=== PATIENT | female | born 1970 | race Caucasian/White ===

== ENCOUNTER 2018-06-16 09:50 | Emergency (ER) | payer BC ==
--- OUTSIDE RECORDS SUMMARY | 2018-06-16 09:59 | XMS REPORT | Continuity of Care Document ---
:1970 External Reference #:[id number] Author Name Ivanna Mendoza Care Team Providers Name Role Phone Carmelo Dumas MD Care Team Information Tax Accounting Assistant Unavailable Payers Date Identification Numbers Payment Provider Subscriber Policy Number: [id number] [facility] [employer] Number: [id number] [address] [id number] PayID: [id number] DANY [address]ve [id number] Advance Directives Description No Information Available Problems Description No Information Family History Date Family Member(s) Observation Comments Father due to CHF () Mother Hypothyroidism Mother Hypertension Siblings 2 1 brother- hip replacement 1 sister, stage 2 cervical cancer Social History Type Date Description Comments Sex Unknown 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 Recreational Drug Use Denies Drug Use Smoking Status Reviewed: 06/14/18 Patient is a former social smoking to smoker age [age]. Exercise Type/Frequency Exercises regularly walking daily 1-2 miles daily and yoga Allergies, Adverse Reactions, Alerts Description No Known Drug Allergies Medications Active Medications SIG Qnty Indications Ordering Provider Date Cabergoline take 0.25mg (/2 14tabs Carmelo Dumas MD 0.5mg tablet) by mouth Tablets twice weekly Leola [facility] 1 tab by mouth Unknown 180mg every day as Tablets needed Immunizations Description No Information Available Vital Signs Date Vital Result Comment 2018 9:35am Height 63 inches 5'3" Weight 174.00 lb w/ shoes Heart Rate 67 /min BP Systolic Sitting 121 mmHg BP Diastolic Sitting 77 mmHg BMI (Body Mass Index) 30.8 kg/m2 Results Description No Information Available Procedures Description No Information Available Encounters Type Date Location Provider Dx Diagnosis Office Visit 2018 [facility] [facility] and Carmelo Dumas MD 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
[2018-06-16 10:04] VITALS: BP 117/81
--- NOTE | 2018-06-16 10:23 | UC ---
Throat Pain/Nasal Alber HPI - HPI Summary HPI Summary: Cough, sore throat, congestion. NO fever. She feels malaise. NO lung disease. - History of Current Complaint Chief Complaint: UCGeneralIllness Stated Complaint: COUGH, SINUS PRESSURE Time Seen by Provider: 06/16/18 09:59 Hx Obtained From: Patient ?: No Onset/Duration: Gradual Onset, Lasting Days Severity: Moderate Pain Intensity: 0 Cough: Nonproductive Associated Signs & Symptoms: Positive: Sinus Discomfort, Nasal Discharge. Negative: Fever, Vomiting, Rash - Epiglottits Risk Factors Epiglottis Risk Factors: Negative - Allergies/Home Medications Allergies/Adverse Reactions: Allergies Allergy/AdvReac Type Severity Reaction Status Date / Time No Known Allergies Allergy Verified 06/16/18 10:05 Home Medications: Home Medications Cabergoline 0.5 mg PO DAILY 06/16/18 [History Confirmed 06/16/18] Fexofenadine (NF) [Leola (NF)] 60 mg PO DAILY PRN 06/16/18 [History Confirmed 06/16/18] PMH/Surg Hx/FS Hx/Imm Hx Previously Healthy: No - pituitary tumor- stable. - Surgical History Surgical History: Yes Surgery Procedure, Year, and Place: hysterectomy, tubal ligation, left ear surgery - Family History Known Family History: Positive: Non-Contributory - Social History Lives: With Family Alcohol Use: Occasionally Substance Use Type: None Smoking Status (MU): Never Smoked Tobacco Review of Systems All Other Systems Reviewed And Are Negative: Yes ENT: Positive: Sore Throat, Sinus Congestion Respiratory: Positive: Cough Physical Exam Triage Information Reviewed: Yes Appearance: No Pain Distress - She has malaise and is congested but non toxic and is pleasant., Well-Nourished Vital Signs: Initial Vital Signs Temp 97.8 F 06/16/18 10:00 Pulse 70 06/16/18 10:00 Resp 16 06/16/18 10:00 BP 117/81 06/16/18 10:00 Pulse Ox 99 06/16/18 10:00 Vital Signs Reviewed: Yes Eyes: Positive: Conjunctiva Clear. Negative: Conjunctiva Inflamed ENT: Positive: Pharynx normal, Nasal congestion, TMs normal, Uvula midline. Negative: Pharyngeal erythema, Nasal drainage, TM bulging, TM dull, TM red, Tonsillar swelling, Tonsillar exudate, Trismus, Sinus tenderness Neck: Positive: Supple, Nontender, No Lymphadenopathy Respiratory: Positive: Lungs clear, Normal breath sounds, No respiratory distress, No accessory muscle use. Negative: Respiratory distress, Decreased breath sounds, Accessory muscle use, Crackles, Rhonchi, Stridor Cardiovascular: Positive: RRR, No Murmur, Pulses Normal, Brisk Capillary Refill Abdomen Description: Positive: No Organomegaly. Negative: Distended, Guarding Musculoskeletal: Positive: Strength Intact, ROM Intact, No Edema Neurological: Positive: Alert, Muscle Tone Normal. Negative: Fatigued Psychological: Positive: Age Appropriate Behavior Skin: Negative: Rashes Throat Pain/Nasal Course/Dx - Differential Dx/Diagnosis Provider Diagnosis: URI with cough and congestion Discharge - Sign-Out/Discharge Documenting (check all that apply): Patient Departure All imaging exams completed and their final reports reviewed: No Studies - Discharge Plan Condition: Good Disposition: HOME Patient Education Materials: Cold Symptoms (ED) Forms: *Work Release Referrals: No Primary Care Phys,NOPCP [Primary Care Provider] - - Billing Disposition and Condition Condition: GOOD Disposition: Home
== END 2018-06-16 10:32 | disposition home or self-care (01) ==
LOC: UCCORT 09:50
DX: J06.9 Acute upper respiratory infection, unspecified (principal); R05 Cough; R09.81 Nasal congestion
CPT/HCPCS: 99211; G0463